=== PATIENT | male | born 1985 | race Caucasian/White ===

== ENCOUNTER 2017-04-21 03:13 | Emergency (ER) | payer MEDICAID, MEDICARE ==
[2017-04-21 03:28] VITALS: RESP 18
--- NOTE | 2017-04-21 04:11 | C.PDOC ---
History Of Present Illness 31 yo male w/PMhx of schizophrenia walk in to ED appears under alcohol intoxication. Pt is awake, verbal, has multiple different complaints" stuffy nose, cough, abd. pain, dizzy". Pt admits, drinking beer today. Pt appears comfortable, not in any apparent distress. Asking for place to sleep. Denies fever, vomiting. Time Seen by Provider: 04/21/17 03:14 Chief Complaint (Nursing): Abdominal Pain History Per: Patient Past Medical History Reviewed: Historical Data, Nursing Documentation, Vital Signs Vital Signs: Last Vital Signs Temp 98.4 F 04/21/17 05:04 Pulse 94 H 04/21/17 05:04 Resp 18 04/21/17 05:04 BP 133/78 04/21/17 05:04 Pulse Ox 98 04/21/17 05:56 - Medical History PMH: Asthma, Bipolar Disorder, Depression, Diabetes Denies: Hepatitis, HIV, HTN, Seizures, Sexually Transmitted Disease - [facility] Procedures GROUP PSYCHOTHERAPY (02/17/17) INDIVIDUAL PSYCHOTHERAPY, SUPPORTIVE (02/17/17) MEDICATION MANAGEMENT (02/17/17) Family History: States: No Known Family Hx - Social History Hx Tobacco Use: Yes Hx Alcohol Use: Yes Hx Substance Use: No - Immunization History Hx Tetanus Toxoid Vaccination: No Hx Influenza Vaccination: No Hx Pneumococcal Vaccination: No Review Of Systems Review Of Systems: ROS cannot be obtained secondary to pt's inabilty to answer questions. (intoxicated) ENT: Positive for: Nose Congestion Physical Exam - Physical Exam Appears: Non-toxic, No Acute Distress Skin: Normal Color, Warm Head: Atraumatic, Normacephalic Nose: No Flaring, Discharge (B/L nasal congestion, scant clear rhinorhea B/L) Oral Mucosa: Moist, No Drooling Tongue: Normal Appearing Lips: Normal Appearing Throat: No Drooling Neck: No Midline Cervical Tenderness, No Paracervical Tenderness, No Step Off Deformity, Supple Chest: Symmetrical, No Deformity Cardiovascular: Rhythm Regular Respiratory: No Decreased Breath Sounds, No Accessory Muscle Use, No Stridor, No Wheezing Gastrointestinal/Abdominal: Soft, No Tenderness, No Distention, No Guarding Back: No CVA Tenderness, No Vertebral Tenderness Extremity: No Normal ROM, No Tenderness, No Pedal Edema, No Deformity, No Swelling Neurological/Psych: Normal Motor, Normal Sensation, Normal Reflexes ED Course And Treatment O2 Sat by Pulse Oximetry: 98 Pulse Ox Interpretation: Normal - Radiology CXR: Interpreted by Me, Viewed By Me ((+)incr peribrochial markings B/L) Progress Note: [id number]. At 5:50, pt is awake, alert, asking for food and drink, . Afebrile, hemodynamicaly stable. non-toxic. Tolerate PO well in ED. PulseOx 99% RA. ENT: no acute findings. Neck: Supple, (-) meningeal sign. Lungs: CTA B/L, BS equal B/L. Abd: benign, (-) guarding, (-) rebound. Back: (- ) CVA tenderness. Neurologicaly intact. CXR: no acute abnormalities. Pt has clinical findings c/w viral illness, alcohol intoxication. Pt advised, stable for discharge now. Disposition Counseled Patient/Family Regarding: Studies Performed, Need For Followup, Rx Given - Disposition Referrals: Amaury Giron MD [Staff Provider] - Disposition: HOME/ ROUTINE Disposition Time: 05:49 Condition: STABLE Additional Instructions: Take medication as prescribed Follow up with PMD in 2-3 days for re-evaluation. Return to ED if any worsening or new changes. Prescriptions: Benzonatate [Tessalon Perles] 100 mg PO TID #20 sgl Fluticasone Propionate [Flonase] 1 actuation NS BID #1 bottle Instructions: Alcohol Intoxication (ED), Viral Syndrome (ED) Forms: [facility] (Luxembourgish) - Clinical Impression Clinical Impression: Alcohol intoxication, Viral illness
[2017-04-21 05:42] VITALS: BP 133/78; PULSE 94; TEMP 98.4
[2017-04-21 05:49] VITALS: O2SAT 98
--- NOTE | 2017-04-21 08:11 | RAD ---
HISTORY: Cough COMPARISON: No prior. TECHNIQUE: Chest PA and lateral FINDINGS: LUNGS: No consolidative infiltrate. The perihilar markings are minimally prominent- can be seen with bronchitis. PLEURA: No significant pleural effusion identified. No pneumothorax apparent. CARDIOVASCULAR: Normal. OSSEOUS STRUCTURES: No significant abnormalities. VISUALIZED UPPER ABDOMEN: Normal. OTHER FINDINGS: None. IMPRESSION: No consolidative infiltrate. Possible bronchitis radiograph
== END 2017-04-21 05:46 | disposition home or self-care (01) ==
LOC: C.ER 03:13
DX: F10.129 Alcohol abuse with intoxication, unspecified (principal); Y90.9 Presence of alcohol in blood, level not specified; B34.9 Viral infection, unspecified; E11.9 Type 2 diabetes mellitus without complications

== ENCOUNTER 2017-04-27 11:01 | Emergency (ER) | payer MEDICAID ==
[2017-04-27 11:11] VITALS: RESP 16; BMI 27.3
--- NOTE | 2017-04-27 11:43 | RAD ---
HISTORY: agitated COMPARISON: Comparison chest dated 04/21/2017 FINDINGS: LUNGS: Poor inspiration with low lung volumes, crowded bronchovascular markings and mild bibasilar atelectasis. PLEURA: No significant pleural effusion identified, no pneumothorax apparent. CARDIOVASCULAR: Normal. OSSEOUS STRUCTURES: Heart appears enlarged VISUALIZED UPPER ABDOMEN: Normal. OTHER FINDINGS: None. IMPRESSION: Poor inspiration with low lung volumes, crowded bronchovascular markings and mild bibasilar atelectasis.
--- NOTE | 2017-04-27 11:50 | C.PDOC ---
History Of Present Illness Patient is a 31 year old male brought [facility] the [facility]. Per pen[facility]entiary , they were concerned that he was under the influence of drugs so sent him to the ED to be evaluated. When MD went to speak to him, he stated "my brain is messed up" and was agitated. He was bizarre and responding to external stimuli. He became increasingly agitated and aggressive. Anne dubon was called to help deescalate. Due to increasing agitation, chemical sedation was given. When gas systems worker evaluated patient, patient reported he was brought by police for intoxication and admits to smoking weed and drinking alcohol. Further history limited Time Seen by Provider: 04/27/17 11:19 Chief Complaint (Nursing): Medical Clearance History Per: Patient History/Exam Limitations: no limitations Onset/Duration Of Symptoms: Unknown Current Symptoms Are (Timing): Still Present Pain Scale Rating Of: 0 Recent travel outside of the [place]: No Additional History Per: EMS Past Medical History Reviewed: Historical Data, Nursing Documentation, Vital Signs Vital Signs: Last Vital Signs Temp 97.8 F 04/27/17 17:07 Pulse 84 04/27/17 17:07 Resp 16 04/27/17 17:07 BP 148/91 H 04/27/17 17:07 Pulse Ox 98 04/27/17 18:14 - Medical History PMH: Asthma, Bipolar Disorder, Depression, Diabetes - [facility] Procedures GROUP PSYCHOTHERAPY (02/17/17) INDIVIDUAL PSYCHOTHERAPY, SUPPORTIVE (02/17/17) MEDICATION MANAGEMENT (02/17/17) Family History: States: Unknown Family Hx - Social History Hx Tobacco Use: Yes Hx Alcohol Use: Yes Hx Substance Use: No - Immunization History Hx Tetanus Toxoid Vaccination: No Hx Influenza Vaccination: No Hx Pneumococcal Vaccination: No Review Of Systems Constitutional: Positive for: Other (limited by patient's condition). Negative for: Fever, Chills Cardiovascular: Negative for: Chest Pain Respiratory: Negative for: Cough, Shortness of Breath Gastrointestinal: Negative for: Nausea, Vomiting, Abdominal Pain, Diarrhea Psych: Negative for: Suicidal ideation Physical Exam - Physical Exam Appears: Non-toxic, Agitated Skin: Warm, Dry Head: Atraumatic, Normacephalic Eye(s): bilateral: Normal Inspection Chest: Symmetrical Cardiovascular: Rhythm Regular Respiratory: Normal Breath Sounds Gastrointestinal/Abdominal: Soft, No Tenderness Extremity: Normal ROM Neurological/Psych: Other (agitated) Gait: Steady ED Course And Treatment - Laboratory Results Result Diagrams: 04/27/17 11:50 04/27/17 11:50 O2 Sat by Pulse Oximetry: 98 (RA) - Radiology CXR: Viewed By Me, Read By Radiologist CXR Interpretation: Yes: Other (Poor inspiration with low lung volumes, crowded bronchovascular markings and mild bibasilar atelectasis.) Medical Decision Making Medical Decision Making: CT head negative. Cxray negative. Labs grossly normal and utox positive for marijuana. EKG shows NSR at 88bpm with normal intervals and no st changes. Patient is resting comfortably and pending crisis eval. 3:39PM Patient is now AAox3 and more conversant. He continues to be agitated and aggressive. He was evaluated by crisis. They report that he eloped from his penitentiary may need commitment. Spoke to crisis and they report that patient is not cleared. Patient was given additional chemical sedation as he poses a risk to himself and others due to agitation. Will continue to monitor. 6:14PM Crisis cleared patient for discharge. Instructed to call penitentiary at when patient ready for discharge. 7:00PM Will sign out to Ramiro Carlson to continue to monitor and reevaluate, and discharge to pen[facility]iary when awake. Disposition - Disposition Disposition Time: 07:00 Condition: GOOD Forms: [facility] (Anguillan) - Clinical Impression Clinical Impression: Schizoaffective disorder, bipolar type, Marijuana abuse - Scribe Statement The provider has reviewed the documentation as recorded by the Scribraimundo Zuñiga All medical record entries made by the Zoraidaibraimundo were at my direction and personally dictated by me. I have reviewed the chart and agree that the record accurately reflects my personal performance of the history, physical exam, medical decision making, and the department course for this patient. I have also personally directed, reviewed, and agree with the discharge instructions and disposition.
[2017-04-27 11:54] LABS: BASO # 0.1 K/uL (0.0-0.2); BASO % 0.9 % (0.0-2.0); EOS # 0.1 K/uL (0.0-0.7); EOS % 1.8 % (0.0-4.0); HEMATOCRIT 42.8 % (35.0-51.0); LYMPH # 3.2 K/uL (1.0-4.3); LYMPH % 37.8 % (20.0-40.0); MEAN CELL VOLUME 90.3 fL (80.0-94.0); MEAN CORPUSCULAR HGB CONC 33.2 g/dL (33.0-37.0); MEAN PLATELET VOLUME 8.9 fL (7.2-11.7); MONO # 0.8 K/uL (0.0-0.8); MONO % 9.2 % (0.0-10.0); WHITE BLOOD COUNT 8.4 K/uL (4.8-10.8)
[2017-04-27 11:58] LABS: RBC URINE 1 /hpf (0-3); URINE BILIRUBIN NEGATIVE (NEGATIVE); URINE BLOOD NEGATIVE (NEGATIVE); URINE COLOR Yellow (YELLOW); URINE GLUCOSE (UA) NORMAL (Normal); URINE KETONE 1+ mg/dL (NEGATIVE); URINE LEUKOCYTE ESTERASE NEG Leu/uL (Negative); URINE PROTEIN NEGATIVE (NEGATIVE); URINE UROBILINOGEN NORMAL mg/dL (0.2-1.0); WBC URINE 1 /hpf (0-5)
[2017-04-27 12:06] LABS: CHLORIDE 100 mmol/L (98-107)
[2017-04-27 12:07] LABS: POTASSIUM 3.9 mmol/L (3.6-5.2); SODIUM 136 mmol/L (132-148)
[2017-04-27 12:10] LABS: ALB/GLOB RATIO 1.4 (1.0-2.1); ALKALINE PHOSPHATASE 59 U/L (38-126); ALT/SGPT 48 U/L (21-72); AST/SGOT 33 U/L (17-59); BILIRUBIN,TOTAL 0.5 mg/dL (0.2-1.3); BLOOD UREA NITROGEN 13 mg/dL (9-20); CALCIUM 9.2 mg/dl (8.6-10.4); CARBON DIOXIDE 27 mmol/L (22-30); GFR AFRICAN-AMERICAN > 60; GLUCOSE,RANDOM 114 mg/dL (75-110); TOTAL PROTEIN 7.5 g/dL (6.3-8.3)
[2017-04-27 12:11] LABS: ALCOHOL SERUM < 10 mg/dl (0-10)
--- NOTE | 2017-04-27 13:35 | CT ---
PROCEDURE: CT scan brain dated 04/27/2017. HISTORY: agitated COMPARISON: None available. TECHNIQUE: Axial computed tomography images were obtained through the head/brain without intravenous contrast. Radiation dose: Total exam DLP = 832.61 mGy-cm. This CT exam was performed using one or more of the following dose reduction techniques: Automated exposure control, adjustment of the mA and/or kV according to patient size, and/or use of iterative reconstruction technique. FINDINGS: HEMORRHAGE: No intracranial hemorrhage. BRAIN: No mass effect or edema. No atrophy or chronic microvascular ischemic changes. VENTRICLES: Unremarkable. No hydrocephalus. CALVARIUM: Unremarkable. PARANASAL SINUSES: Unremarkable as visualized. No significant inflammatory changes. MASTOID AIR CELLS: Unremarkable as visualized. No inflammatory changes. OTHER FINDINGS: None. IMPRESSION: No acute intracranial hemorrhage.
[2017-04-27 20:31] VITALS: BP 137/74; PULSE 79; TEMP 98; O2SAT 96
--- NOTE | 2017-04-28 13:13 | CARD ---
APPROVED REPORT EKG Measurement Heart [id number] <Conclusion> Normal sinus rhythm Normal ECG
== END 2017-04-27 20:32 | disposition home or self-care (01) ==
LOC: C.ER 11:01
DX: F25.0 Schizoaffective disorder, bipolar type (principal); F12.10 Cannabis abuse, uncomplicated
CPT/HCPCS: 70450; 71010; 80053; 80320; 80324; 80345; 80346; 80349; 80353; 80358; 80361; 81001; 82948; 83992; 85025; 93005; 96372; 99284; J1630; J2060

== ENCOUNTER 2017-08-28 10:50 | Emergency (ER) | payer MEDICAID, MEDICARE ==
[2017-08-28 11:04] VITALS: BMI 37.4
[2017-08-28 11:13] VITALS: TEMP 98.5; O2SAT 96
[2017-08-28 12:47] LABS: BASO # 0.1 K/uL (0.0-0.2); BASO % 0.7 % (0.0-2.0); EOS # 0.1 K/uL (0.0-0.7); EOS % 1.6 % (0.0-4.0); HEMOGLOBIN 14.9 g/dL (12.0-18.0); LYMPH # 3.4 K/uL (1.0-4.3); LYMPH % 37.3 % (20.0-40.0); MEAN CELL VOLUME 88.1 fL (80.0-94.0); MEAN CORPUSCULAR HEMOGLOBIN 30.2 pg (27.0-31.0); MEAN CORPUSCULAR HGB CONC 34.3 g/dL (33.0-37.0); MEAN PLATELET VOLUME 9.2 fL (7.2-11.7); MONO # 0.6 K/uL (0.0-0.8); MONO % 6.6 % (0.0-10.0); NEUT # 4.9 K/uL (1.8-7.0); NEUT % 53.8 % (50.0-75.0); NRBC % 0.1 % (0.0-2.0); RBC 4.92 Mil/uL (4.40-5.90); RED CELL DISTRIBUTION WIDTH 15.2 % (11.5-14.5); WHITE BLOOD COUNT 9.1 K/uL (4.8-10.8)
[2017-08-28 12:48] LABS: URINE BILIRUBIN NEGATIVE (NEGATIVE); URINE BLOOD NEGATIVE (NEGATIVE); URINE CLARITY Clear (Clear); URINE COLOR Yellow (YELLOW); URINE GLUCOSE (UA) NORMAL (Normal); URINE LEUKOCYTE ESTERASE NEG Leu/uL (Negative); URINE NITRATE NEGATIVE (NEGATIVE); URINE PROTEIN NEGATIVE (NEGATIVE); URINE UROBILINOGEN NORMAL mg/dL (0.2-1.0)
[2017-08-28 12:53] LABS: ALB/GLOB RATIO 1.3 (1.0-2.1); ALBUMIN 4.4 g/dL (3.5-5.0); ALT/SGPT 41 U/L (21-72); AST/SGOT 23 U/L (17-59); BLOOD UREA NITROGEN 13 mg/dL (9-20); CALCIUM 9.8 mg/dl (8.6-10.4); GFR AFRICAN-AMERICAN > 60; GFR NON-AFRICAN AMERICAN > 60
[2017-08-28 13:16] LABS: BARBITURATES, UR NEGATIVE (NEGATIVE); BENZODIAZEPINES, UR NEGATIVE (NEGATIVE); OPIATES, UR NEGATIVE (NEGATIVE); PHENCYCLIDINE, UR NEGATIVE (NEGATIVE)
--- NOTE | 2017-08-28 13:49 | C.PDOC ---
History Of Present Illness 32-year-old male, PMHx includes Asthma, Bipolar Disorder, Depression, HTN, Hyperthyroidism, and Schizophrenia, presents to the emergency department with complaints of auditory hallucinations a few weeks ago. Patient denies any HI/SI at this time. No other complaints at this time. Time Seen by Provider: 08/28/17 11:34 Chief Complaint (Nursing): Psychiatric Evaluation History Per: Patient History/Exam Limitations: no limitations Past Medical History Reviewed: Historical Data, Nursing Documentation, Vital Signs Vital Signs: Last Vital Signs Temp 98.5 F 08/28/17 11:12 Pulse 84 08/28/17 11:12 Resp 20 08/28/17 11:12 BP 154/97 H 08/28/17 11:12 Pulse Ox 96 08/28/17 14:02 - Medical History PMH: Asthma, Bipolar Disorder, Depression, HTN, Hyperthyroidism, Schizophrenia Denies: Diabetes, Hepatitis, HIV, Seizures, Sexually Transmitted Disease - [facility] Procedures GROUP PSYCHOTHERAPY (02/17/17) INDIVIDUAL PSYCHOTHERAPY, SUPPORTIVE (02/17/17) MEDICATION MANAGEMENT (02/17/17) Family History: States: No Known Family Hx - Social History Hx Tobacco Use: Yes Hx Alcohol Use: Yes Hx Substance Use: No - Immunization History Hx Tetanus Toxoid Vaccination: No Hx Influenza Vaccination: No Hx Pneumococcal Vaccination: No Review Of Systems Constitutional: Negative for: Fever Cardiovascular: Negative for: Chest Pain Respiratory: Negative for: Shortness of Breath Neurological: Negative for: Weakness, Numbness Psych: Negative for: Anxiety, Depression, Suicidal ideation Physical Exam - Physical Exam Appears: Non-toxic, No Acute Distress Skin: Normal Color, Warm, Dry, No Rash Head: Normacephalic Eye(s): bilateral: Normal Inspection Nose: Normal Oral Mucosa: Moist Neck: Normal ROM Chest: Symmetrical Cardiovascular: Rhythm Regular, No Murmur Respiratory: Normal Breath Sounds, No Accessory Muscle Use Extremity: Normal ROM Neurological/Psych: Oriented x3, Normal Speech ED Course And Treatment - Laboratory Results Result Diagrams: 08/28/17 12:32 08/28/17 12:32 O2 Sat by Pulse Oximetry: 96 (RA) Pulse Ox Interpretation: Normal Medical Decision Making Medical Decision Making: Plan: * UDS, CMP, EtOH Serum * Crisis Evaluation * UA * Reassess and Disposition Disposition Counseled Patient/Family Regarding: Diagnosis, Need For Followup - Disposition Referrals: Amaury Giron MD [Staff Provider] - Disposition: HOME/ ROUTINE Disposition Time: 13:50 Condition: STABLE Additional Instructions: FOLLOW UP AT SERV INSTRUCTED RETURN TO ER IF YOU HAVE ANY CONCERNING SYMPTOMS Forms: [facility] (Iranian), General Discharge Instructions Print Language: WELSH - POA Present On Arrival: None - Clinical Impression Clinical Impression: Auditory hallucinations - Scribe Statement The provider has reviewed the documentation as recorded by the Scribe (Francheska Sandoval) All medical record entries made by the Scribe were at my direction and personally dictated by me. I have reviewed the chart and agree that the record accurately reflects my personal performance of the history, physical exam, medical decision making, and the department course for this patient. I have also personally directed, reviewed, and agree with the discharge instructions and disposition.
[2017-08-28 14:05] VITALS: BP 163/109; PULSE 89; RESP 16
== END 2017-08-28 14:07 | disposition home or self-care (01) ==
LOC: C.ER 10:50
DX: R44.0 Auditory hallucinations (principal); F31.9 Bipolar disorder, unspecified; I10 Essential (primary) hypertension; F17.210 Nicotine dependence, cigarettes, uncomplicated

== ENCOUNTER 2017-10-01 06:50 | Emergency (ER) | payer MEDICAID ==
[2017-10-01 06:51] VITALS: BMI 37.4
[2017-10-01 07:49] VITALS: O2SAT 96
[2017-10-01 07:52] LABS: BASO # 0.1 K/uL (0.0-0.2); BASO % 1.3 % (0.0-2.0); EOS # 0.1 K/uL (0.0-0.7); EOS % 1.7 % (0.0-4.0); HEMOGLOBIN 14.7 g/dL (12.0-18.0); LYMPH # 3.3 K/uL (1.0-4.3); LYMPH % 43.7 % (20.0-40.0); MEAN CELL VOLUME 89.4 fL (80.0-94.0); MEAN CORPUSCULAR HEMOGLOBIN 30.2 pg (27.0-31.0); MEAN CORPUSCULAR HGB CONC 33.8 g/dL (33.0-37.0); MONO # 0.7 K/uL (0.0-0.8); MONO % 9.9 % (0.0-10.0); NEUT # 3.3 K/uL (1.8-7.0); NEUT % 43.4 % (50.0-75.0); NRBC % 0.1 % (0.0-2.0); RBC 4.88 Mil/uL (4.40-5.90); RED CELL DISTRIBUTION WIDTH 14.2 % (11.5-14.5); WHITE BLOOD COUNT 7.5 K/uL (4.8-10.8)
--- NOTE | 2017-10-01 07:57 | RAD ---
HISTORY: chest pain COMPARISON: Chest x-ray 04/27/2017 TECHNIQUE: Chest one view . FINDINGS: LUNGS: No focal consolidation is seen. PLEURA: No pleural effusion is identified. CARDIOVASCULAR: Heart size is within normal limits. OSSEOUS STRUCTURES: No acute fracture identified. VISUALIZED UPPER ABDOMEN: Unremarkable. OTHER FINDINGS: None. IMPRESSION: No acute cardiopulmonary process seen.
[2017-10-01 08:05] LABS: ALB/GLOB RATIO 1.2 (1.0-2.1); ALBUMIN 4.5 g/dL (3.5-5.0); ALT/SGPT 43 U/L (21-72); AST/SGOT 33 U/L (17-59); BLOOD UREA NITROGEN 12 mg/dL (9-20); CALCIUM 9.3 mg/dl (8.6-10.4); GFR AFRICAN-AMERICAN > 60; GFR NON-AFRICAN AMERICAN > 60
[2017-10-01 08:17] LABS: B-TYPE NATRIURETIC PEPTIDE 19.7 pg/mL (0-450)
[2017-10-01 08:33] LABS: URINE BILIRUBIN NEGATIVE (NEGATIVE); URINE BLOOD NEGATIVE (NEGATIVE); URINE CLARITY Hazy (Clear); URINE COLOR Yellow (YELLOW); URINE GLUCOSE (UA) NORMAL (Normal); URINE LEUKOCYTE ESTERASE NEG Leu/uL (Negative); URINE PROTEIN NEGATIVE (NEGATIVE)
--- NOTE | 2017-10-01 08:36 | C.PDOC ---
History Of Present Illness 32 y/o male with history of HTN, DM, Asthma and Psychiatric events presents to ED with complaints of chest pain and shoulder pain for 1 day. Patient states he does not have DM and HTN medication and states "I want to be checked". Patient denies SI/HI, sob, headache, nausea, vomiting, dizziness or any other complaints at this time. Time Seen by Provider: 10/01/17 07:00 Chief Complaint (Nursing): Psychiatric Evaluation History Per: Patient History/Exam Limitations: no limitations Onset/Duration Of Symptoms: Days Current Symptoms Are (Timing): Still Present Suicide/Self Injury Attempted (Context): None Past Medical History Reviewed: Historical Data, Nursing Documentation, Vital Signs Vital Signs: Last Vital Signs Temp 98.1 F 10/01/17 08:57 Pulse 78 10/01/17 08:57 Resp 18 10/01/17 08:57 BP 150/95 H 10/01/17 08:57 Pulse Ox 96 10/01/17 17:23 - Medical History PMH: Asthma, Bipolar Disorder, Depression, Diabetes, Hyperthyroidism, Schizophrenia Surgical History: No Surg Hx - [facility] Procedures GROUP PSYCHOTHERAPY (02/17/17) INDIVIDUAL PSYCHOTHERAPY, SUPPORTIVE (02/17/17) MEDICATION MANAGEMENT (02/17/17) Family History: States: No Known Family Hx - Social History Hx Tobacco Use: Yes Hx Alcohol Use: Yes Hx Substance Use: Yes - Immunization History Hx Tetanus Toxoid Vaccination: No Hx Influenza Vaccination: No Hx Pneumococcal Vaccination: No Review Of Systems Constitutional: Negative for: Fever, Chills Cardiovascular: Positive for: Chest Pain Respiratory: Negative for: Cough, Shortness of Breath Gastrointestinal: Negative for: Nausea, Vomiting Musculoskeletal: Positive for: Shoulder Pain Skin: Negative for: Rash Physical Exam - Physical Exam Appears: Non-toxic, No Acute Distress Skin: Warm, Dry, No Rash Head: Atraumatic, Normacephalic Eye(s): bilateral: Normal Inspection Oral Mucosa: Moist Neck: Normal ROM, Supple Cardiovascular: Rhythm Regular Respiratory: Normal Breath Sounds, No Rales, No Rhonchi, No Wheezing Gastrointestinal/Abdominal: Soft, No Tenderness, No Guarding, No Rebound Extremity: Normal ROM, No Pedal Edema, Capillary Refill (<2 seconds) Neurological/Psych: Oriented x3, Normal Speech ED Course And Treatment - Laboratory Results Result Diagrams: 10/01/17 07:47 10/01/17 07:47 O2 Sat by Pulse Oximetry: 96 (RA) Medical Decision Making Medical Decision Making: Progress: Patient seen by crisis end cleared byc risis Lbas, Troponin and CXR , ECG results within normal limits Patient discharged with prescriptions for medications Disposition Counseled Patient/Family Regarding: Studies Performed, Diagnosis, Need For Followup, Rx Given - Disposition Referrals: Amaury Giron MD [Staff Provider] - Disposition: HOME/ ROUTINE Disposition Time: 08:36 Condition: STABLE Prescriptions: MetFORMIN [glucoPHAGE] 500 mg PO BID #60 tab Forms: [facility] (Lithuanian), General Discharge Instructions - POA Present On Arrival: None - Clinical Impression Clinical Impression: Non-cardiac chest pain - Scribe Statement The provider has reviewed the documentation as recorded by the Scribraimundo Carter All medical record entries made by the Scribe were at my direction and personally dictated by me. I have reviewed the chart and agree that the record accurately reflects my personal performance of the history, physical exam, medical decision making, and the department course for this patient. I have also personally directed, reviewed, and agree with the discharge instructions and disposition.
[2017-10-01 08:54] LABS: BARBITURATES, UR NEGATIVE (NEGATIVE); BENZODIAZEPINES, UR NEGATIVE (NEGATIVE); OPIATES, UR NEGATIVE (NEGATIVE); PHENCYCLIDINE, UR NEGATIVE (NEGATIVE)
[2017-10-01 09:01] VITALS: BP 150/95; PULSE 78; RESP 18; TEMP 98.1
== END 2017-10-01 09:01 | disposition home or self-care (01) ==
LOC: C.ER 06:50
DX: R07.89 Other chest pain (principal)

== ENCOUNTER 2017-10-25 21:01 | Emergency (ER) | payer MEDICAID, MEDICARE ==
[2017-10-25 21:02] VITALS: BMI 37.4
--- NOTE | 2017-10-25 22:07 | C.PDOC ---
History Of Present Illness Pt states that he drank some alcohol today, but that he feels better already and wants to go home. He denies SI/HI or hallucinations. Time Seen by Provider: 10/25/17 21:50 Chief Complaint (Nursing): Psychiatric Evaluation History Per: Patient Onset/Duration Of Symptoms: Hrs Current Symptoms Are (Timing): Better Suicide/Self Injury Attempted (Context): None Modifying Factor(s): Alcohol Severity: Moderate Associated Symptoms: denies: Suicidal Thoughts, Suicidal Plan Additional History Per: Prior Records Past Medical History Reviewed: Historical Data, Nursing Documentation, Vital Signs Vital Signs: Last Vital Signs Temp 98.2 F 10/25/17 21:04 Pulse 86 10/25/17 21:04 Resp 18 10/25/17 21:04 BP 160/91 H 10/25/17 21:04 Pulse Ox 98 10/25/17 21:04 - Medical History PMH: Asthma, Bipolar Disorder, Depression, Diabetes, Hyperthyroidism, Schizophrenia - [facility] Procedures GROUP PSYCHOTHERAPY (02/17/17) INDIVIDUAL PSYCHOTHERAPY, SUPPORTIVE (02/17/17) MEDICATION MANAGEMENT (02/17/17) Family History: States: Unknown Family Hx - Social History Hx Tobacco Use: Yes Hx Alcohol Use: Yes Hx Substance Use: Yes - Immunization History Hx Tetanus Toxoid Vaccination: No Hx Influenza Vaccination: No Hx Pneumococcal Vaccination: No Review Of Systems Except As Marked, All Systems Reviewed And Found Negative. Constitutional: Negative for: Fever Cardiovascular: Negative for: Chest Pain Respiratory: Negative for: Shortness of Breath Gastrointestinal: Negative for: Vomiting, Abdominal Pain Musculoskeletal: Negative for: Neck Pain Skin: Negative for: Rash Neurological: Negative for: Weakness, Numbness, Seizures Psych: Negative for: Psychosis Physical Exam - Physical Exam Appears: Non-toxic, No Acute Distress Skin: Normal Color, Warm, Dry, No Rash Head: Atraumatic, Normacephalic Eye(s): bilateral: PERRL, EOMI Neck: Normal ROM, Supple Cardiovascular: Rhythm Regular Respiratory: Normal Breath Sounds, No Accessory Muscle Use Gastrointestinal/Abdominal: Soft, No Tenderness Extremity: Normal ROM Neurological/Psych: Oriented x3, Normal Motor, Normal Sensation Gait: Steady ED Course And Treatment O2 Sat by Pulse Oximetry: 98 Pulse Ox Interpretation: Normal Reassessment Condition: Improved Disposition Counseled Patient/Family Regarding: Diagnosis, Need For Followup - Disposition Referrals: Amaury Giron MD [Staff Provider] - Disposition: HOME/ ROUTINE Disposition Time: 22:07 Condition: IMPROVED Additional Instructions: Avoid alcohol. Follow up with your doctor. Return to the ER if you develop suicidal or homicidal thoughts, worsening of symptoms or if you have any other concerns. Instructions: Alcohol Abuse and Alcoholism (DC) - Clinical Impression Clinical Impression: Alcohol abuse
[2017-10-26 00:02] VITALS: BP 134/78; PULSE 88; RESP 20; TEMP 98.1; O2SAT 97
== END 2017-10-25 23:00 | disposition home or self-care (01) ==
LOC: C.ER 21:01
DX: F10.10 Alcohol abuse, uncomplicated (principal)